=== PATIENT | male | born 1965 | race Caucasian/White ===

== ENCOUNTER 2020-04-14 09:05 | Day surgery (SDC) | payer MEDICARE, MEDICAID ==
[~2020-04-14 09:05] MED LIST: CHONDR SU A NA/HYALUR INTRAOC KIT (SURGICARE) ONE; EPINEPHRINE INJ/PF 1 MG/1 ML AMPULE ONE; KETOROLAC TROMETHAMINE 0.45% 4 DROP/0.4 ML DROPERETTE OS PRN; LIDOCAINE 1%/PHENYLEPHRINE 1.5% 1 ML VIAL ONE
[2020-04-14] MEDS: TROPICAMIDE 1% OPH SOLN 15 ML OS PRN ×3 (10:10→10:29)
[2020-04-14] MEDS: TETRACAINE HCL 0.5% OPH SOLN 4 ML OS PRN ×3 (10:10→10:43)
[2020-04-14] MEDS: BESIFLOXACIN HCL 0.6% OPH SUSP 5 ML BOTTLE OS PRN ×4 (10:11→11:12)
[2020-04-14] MEDS: CYCLOPENTOLATE 0.2%/PHENYLEPHRINE 1% OPH SOLN 2 ML OS PRN ×3 (10:11→10:29)
[2020-04-14] MEDS ORDERED: MIDAZOLAM 2 MG/2 ML INJ ONE (10:16)
[2020-04-14] MEDS ORDERED: CHONDR SU A NA/HYALUR SOD 0.5 ML DISP.SYRIN ONE (11:07)
[2020-04-14] MEDS ORDERED: TOBRAMYCIN SULFATE/DEXAMETH OPH OINTMENT 3.5 GM ONE (11:12)
[2020-04-14] MEDS: DORZOLAMIDE HCL 2%/TIMOLOL MALEAT 0.5% OPH SOLN 10 ML OS PRN ×2 (11:12)
[2020-04-14] MEDS: PREDNISOLONE ACETATE 1% OPH SUSP 5 ML OS PRN ×2 (11:12)
--- NOTE | 2020-04-14 12:11 | Operative Report ---
Operative Report[facility] Operative Report: DATE OF SURGERY: 04/14/2020 PREOPERATIVE DIAGNOSIS: Cataracts, left eye POSTOPERATIVE DIAGNOSIS: Cataract, left eye OPERATION: Cataract extraction with insertion of an IOL of the left eye. Intraocular Lens Model: [21.5 SN 60 WF] Patient underwent surgery for difficulty seeing small print SURGEON: Livan Anthony MD ANESTHESIA: Topical PROCEDURE: After obtaining appropriate consent, the patient's left eye was prepped and draped in a sterile fashion as well as the surgeon in the sterile manner and cataract surgery was started. First a paracentesis blade was used to make a side-port incision. Viscoelastic was used to inflate the anterior chamber. Next a 2.4 mm incision was made with a 2.4 mm blade, clear corneal temporarily. A continuous capsulorrhexis was made using a cystotome and Utrata forceps. Following this hydrodissection was carried out to make the lens fully loose and mobile and it was rotated 90 degrees. Following this, a divide and conquer technique was used to phacoemulsify the lens. The remaining cortex was removed with an irrigation/aspiration. Provisc was instilled into the capsular bag to inflate the bag.The intraocular lens was placed. The remaining viscoelastic material was removed with irrigation/aspiration. Following this, the incision was found to be watertight. Besivance and Cosopt was instilled into the eye and a protective shield was placed over the eye. The patient was returned to the postoperative recovery in a stable condition.
== END 2020-04-14 11:45 ==
LOC: SC 09:05
PROVIDERS: ATTEND Internal Medicine
DX: H25.812 Combined forms of age-related cataract, left eye (principal); H25.89 Other age-related cataract; E11.3313 Type 2 diabetes mellitus with moderate nonproliferative diabetic retinopathy with macular edema, bilateral; E11.36 Type 2 diabetes mellitus with diabetic cataract; Z79.4 Long term (current) use of insulin; I10 Essential (primary) hypertension; E78.00 Pure hypercholesterolemia, unspecified; Z95.1 Presence of aortocoronary bypass graft; I25.10 Atherosclerotic heart disease of native coronary artery without angina pectoris; I48.91 Unspecified atrial fibrillation; Z99.2 Dependence on renal dialysis; D64.9 Anemia, unspecified; G47.33 Obstructive sleep apnea (adult) (pediatric); I25.2 Old myocardial infarction
CPT/HCPCS: 66984; 82962; V2632; J2250; J3490 ×3; A9270 ×2; J0171; 142

== ENCOUNTER 2020-04-26 15:16 | Emergency (ER) | payer MEDICARE, MEDICAID ==
--- NOTE | 2020-04-26 15:34 | ER Document Report ---
ED Medical Screen (RME) - General Chief Complaint: High Blood Sugar Stated Complaint: LEG WEAKNESS Time Seen by Provider: 04/26/20 15:23 Primary Care Provider: AZAR SANTIAGO MD [Primary Care Provider] - Follow up as needed Mode of Arrival: Medic Information source: Patient Notes: 55-year-old male presents to ED ED via EMS with C/O bilateral leg weakness. The states that his sugar was 40 this morning so he ate a xiao biscuit took 2 sugar pills and drinking apple juice. He states he did not take his insulin this morning because her sugar was low. He then went to go to a scheduled doctors appointment where his legs felt weak and gave out on him. He states the got back in the car and went to get food for blood sugar being low and the same thing happened with his legs. EMS was called and was brought to ED. EMS reports a BGL of 505. Patient is alert oriented respirations regular nonlabored speaking in full sentences. A+Ox4. respirations even and unlabored. Patient has a history ED failure dialysis DM, HTN, takes blood thinners. States he does ache all over. I have greeted and performed a rapid initial assessment of this patient. A comp rehensive ED assessment and evaluation of the patient, analysis of test results and completion of medical decision making process will be conducted by an additional ED providers. - Related Data Allergies/Adverse Reactions: pregabalin [From Lyrica] Allergy (Verified 04/26/20 15:29) Hives Past Medical History - Past Medical History Cardiac Medical History: Reports: Hx Heart Attack, Hx Hypertension Pulmonary Medical History: Denies: Hx Asthma Neurological Medical History: Denies: Hx Cerebrovascular Accident, Hx Seizures GI Medical History: Denies: Hx Hepatitis, Hx Hiatal Hernia, Hx Ulcer Infectious Medical History: Denies: Hx Hepatitis Past Surgical History: Reports: Hx Open Heart Surgery. Denies: Hx Pacemaker Physical Exam - Vital signs Vitals: Temp Pulse Resp BP Pulse Ox 98.5 F 105 H 16 157/89 H 98 04/26/20 15:22 04/26/20 15:22 04/26/20 15:22 04/26/20 15:22 04/26/20 15:22 Course - Vital Signs Vital signs: Temp Pulse Resp BP Pulse Ox 98.5 F 105 H 16 157/89 H 98 04/26/20 15:22 04/26/20 15:22 04/26/20 15:22 04/26/20 15:22 04/26/20 15:22 Doctor's Discharge - Discharge Referrals: AZAR SANTIAGO MD [Primary Care Provider] - Follow up as needed
[2020-04-26 15:59] LABS: VENOUS BLOOD BASE EXCESS 1.2 mmol/L; VENOUS BLOOD PCO2 53.8 mmHg (35-63); VENOUS BLOOD PH 7.34 (7.30-7.42)
[2020-04-26 16:06] LABS: ABSOLUTE BASOPHILS # (AUTO) 0.1 10^3/uL (0.0-0.2); ABSOLUTE LYMPHOCYTES (AUTO) 0.5 10^3/uL (0.5-4.7); ABSOLUTE MONOCYTES (AUTO) 0.6 10^3/uL (0.1-1.4); ABSOLUTE NEUT (AUTO) 5.3 10^3/uL (1.7-8.2); BASOPHILS % (AUTO) 0.9 % (0-2); EOSINOPHILS % (AUTO) 0.5 % (0-6); HEMATOCRIT 38.4 % (37.9-51.0); HEMOGLOBIN 12.6 g/dL (13.5-17.0); LYMPHOCYTES % (AUTO) 8.1 % (13-45); MEAN CORPUSCULAR HEMOGLOBIN 31.9 pg (27.0-33.4); MEAN CORPUSCULAR HGB CONC 32.8 g/dL (32.0-36.0); MEAN CORPUSCULAR VOLUME 97 fl (80-97); MONOCYTES % (AUTO) 9.7 % (3-13); PLATELET COUNT 284 10^3/uL (150-450); RED BLOOD COUNT 3.95 10^6/uL (4.35-5.55); RED CELL DISTRIBUTION WIDTH 15.5 % (11.5-14.0); SEGMENTED NEUTROPHILS % (AUTO) 80.8 % (42-78); TOTAL CELLS COUNTED % (AUTO) 100 %; WHITE BLOOD COUNT 6.5 10^3/uL (4.0-10.5)
[2020-04-26 16:14] LABS: ALBUMIN 4.3 g/dL (3.5-5.0); ALKALINE PHOSPHATASE 225 U/L (38-126); ANION GAP 15 (5-19); ASPARTATE AMINO TRANSFERASE 52 U/L (17-59); BILIRUBIN,DIRECT 0.4 mg/dL (0.0-0.4); BILIRUBIN,TOTAL 1.1 mg/dL (0.2-1.3); BLOOD UREA NITROGEN 63 mg/dL (7-20); CALCIUM 8.3 mg/dL (8.4-10.2); CARBON DIOXIDE 28 mmol/L (22-30); CHLORIDE 87 mmol/L (98-107); TOTAL PROTEIN 6.7 g/dL (6.3-8.2)
[2020-04-26 16:35] LABS: GLUCOSE 508 mg/dL (75-110)
--- NOTE | 2020-04-26 17:07 | ER Document Report ---
ED General - General Chief Complaint: Leg Pain Stated Complaint: LEG WEAKNESS Time Seen by Provider: 04/26/20 15:23 Primary Care Provider: AZAR SANTIAGO MD [RONNIE ISSA] - Follow up as needed Mode of Arrival: Medic - HPI Notes: 55-year-old male presents with bilateral leg weakness. Patient states that this morning while going to get something to eat, when he went to get out of the car and stepped up on the curb his legs felt "like noodles" and gave out, causing him to fall to the ground, states he did not hit his head. He states he was able to get up and walk without issue. Another episode similar to this happened again with the leg noodle sensation. States that he has since gotten up and walked, has been able to stand, currently denying complaints. Patient is a MWF dialysis patient, states he had a full session yesterday. He also states that this morning he had some hypoglycemia, he went and ate a large breakfast and sugar increased to the 500s, he has not taken any insulin today and has not had anything to eat since. No chest pain or shortness of breath. Had a cardioversion for A. fib a few weeks ago. Reports compliance with his medications. - Related Data Allergies/Adverse Reactions: pregabalin [From Lyrica] Allergy (Verified 04/26/20 15:29) Hives Past Medical History - General Information source: Patient - Social History Smoking Status: Former Smoker Family History: Reviewed & Not Pertinent Patient has homicidal ideation: No - Past Medical History Cardiac Medical History: Reports: Hx Heart Attack, Hx Hypertension Pulmonary Medical History: Denies: Hx Asthma Neurological Medical History: Denies: Hx Cerebrovascular Accident, Hx Seizures GI Medical History: Denies: Hx Hepatitis, Hx Hiatal Hernia, Hx Ulcer Infectious Medical History: Denies: Hx Hepatitis Past Surgical History: Reports: Hx Open Heart Surgery. Denies: Hx Pacemaker Review of Systems - Review of Systems Constitutional: No symptoms reported EENT: No symptoms reported Cardiovascular: denies: Chest pain Respiratory: denies: Short of breath Gastrointestinal: denies: Abdominal pain Genitourinary: Other - Still makes urine Male Genitourinary: No symptoms reported Musculoskeletal: denies: Muscle pain Skin: No symptoms reported Hematologic/Lymphatic: No symptoms reported Neurological/Psychological: denies: Numbness, Tingling Physical Exam - Vital signs Vitals: Temp Pulse Resp BP Pulse Ox 98.5 F 105 H 16 157/89 H 98 04/26/20 15:22 04/26/20 15:22 04/26/20 15:22 04/26/20 15:22 04/26/20 15:22 - General General appearance: Appears well, Alert In distress: None - HEENT Head: Normocephalic, Atraumatic Extraocular movements intact: Yes Pupils: PERRL - Respiratory Breath sounds: Normal. No: Rales - Cardiovascular Rhythm: Regular Heart sounds: Normal auscultation Normal capillary refill: Yes - Abdominal Tenderness: Nontender - Extremities General upper extremity: Normal ROM General lower extremity: Normal ROM. No: Edema - Neurological Neuro grossly intact: Yes Cognition: Normal Orientation: AAOx4 Notes: Strength 5/5 lower extremities, sensation intact, coordination intact - Psychological Associated symptoms: Normal affect - Skin Skin Temperature: Warm Course - Re-evaluation Re-evalutation: 55-year-old male presents with 2 episodes of leg weakness described as his legs giving out. On exam he is well-appearing, neurologically intact, has intact motor and sensation to his lower extremities. He currently without complaints. Additionally had hypo then hyperglycemia today. The triage process patient had labs done which is notable for a potassium of 8.0, no EKG changes, MWF dialysis and had session yesterday. We will start shifting with calcium gluconate, insulin, bicarb and Lasix. Hold on D50 as he is hyperglycemic with pseudoh yponatremia. VBG without acidosis. 04/26/20 18:59 Initial shift medications have been ordered, patient's repeat glucose essentially on change, will give this some more insulin for hyperglycemia/hype rkalemia then intend to recheck labs 04/26/20 20:42 Patient has had reduction of potassium of 2 points, now 5.9, he is due for dialysis tomorrow, feel this is acceptable value 04/26/20 20:47 Updated patient on results. He would like to go home and eager to go home immediately. He confirms that he will be going to dialysis tomorrow. Discussed with him to discuss the hyperkalemia, he states that he takes 3 doses of binders per day. Strict return precautions given, stable at time of discharge. - Vital Signs Vital signs: Temp Pulse Resp BP Pulse Ox 97.6 F 105 H 14 128/77 H 98 04/26/20 20:00 04/26/20 15:22 04/26/20 19:01 04/26/20 19:01 04/26/20 19:01 - Laboratory Result Diagrams: 04/26/20 15:43 04/26/20 20:05 Laboratory results interpreted by me: 04/26/20 04/26/20 04/26/20 15:38 15:43 15:43 RBC 3.95 L Hgb 12.6 L RDW 15.5 H Lymph % (Auto) 8.1 L Seg Neutrophils % 80.8 H Sodium 129.5 L Potassium 8.0 H* Chloride 87 L BUN 63 H Creatinine 6.76 H Est GFR ( Amer) 10 L Est GFR (MDRD) Non-Af 9 L Glucose 508 H* POC Glucose 440 H* Calcium 8.3 L ALT 75 H Alkaline Phosphatase 225 H 04/26/20 04/26/20 04/26/20 17:21 18:43 20:05 RBC Hgb RDW Lymph % (Auto) Seg Neutrophils % Sodium 132.9 L Potassium 5.9 H D Chloride 91 L BUN 66 H Creatinine 7.18 H Est GFR ( Amer) 10 L Est GFR (MDRD) Non-Af 8 L Glucose 320 H POC Glucose 474 H* 435 H* Calcium ALT Alkaline Phosphatase 04/26/20 20:05 RBC Hgb RDW Lymph % (Auto) Seg Neutrophils % Sodium Potassium Chloride BUN Creatinine Est GFR ( Amer) Est GFR (MDRD) Non-Af Glucose POC Glucose 307 H Calcium ALT Alkaline Phosphatase - EKG Interpretation by Me Additional EKG results interpreted by me: EKG is interpreted by me sinus rhythm, rate 98. Widened QRS, IVCD. Slightly prolonged QTC. Nonspecific ST changes. No peaked T waves. Discharge - Discharge Clinical Impression: Hyperkalemia, ESRD (end stage renal disease) on dialysis, Hyperglycemia due to diabetes mellitus Disposition: HOME, SELF-CARE Additional Instructions: Please be sure to go to dialysis tomorrow, discussed with him potentially changing her potassium bath. Return to the emergency department for any concerning worsening symptoms. Continue all medications as prescribed. Referrals: AZAR SANTIAGO MD [RONNIE ISSA] - Follow up as needed
[2020-04-26] MEDS ORDERED: CALCIUM GLUCONATE 1000 MG/10 ML INJ IV ONE (17:08)
[2020-04-26] MEDS ORDERED: INSULIN REG, HUMAN 100 UNIT/ML 3 ML VIAL (PYX) IV ONE ×2 (17:22→18:58)
[2020-04-26] MEDS ORDERED: FUROSEMIDE INJ/PF 20 MG/2 ML SDV IV ONE (17:22)
[2020-04-26] MEDS ORDERED: SODIUM BICARBONATE 8.4% INJ 50 MEQ/50 ML DISP.SYRIN IV ONE (17:23)
[2020-04-26] MEDS ORDERED: INSULIN REG, HUMAN 100 UNIT/ML 3 ML VIAL (PYX) ONE (17:59)
--- NOTE | 2020-04-26 18:16 | EKG REPORT ---
SEVERITY:- ABNORMAL ECG - SINUS OR ECTOPIC ATRIAL RHYTHM IVCD, CONSIDER ATYPICAL LBBB NONSPECIFIC LATERAL ST CHANGES : Confirmed by: Merritt Salazar MD 26-Apr-2020 18:16:10
[2020-04-26 20:33] LABS: ANION GAP 13 (5-19); BLOOD UREA NITROGEN 66 mg/dL (7-20); CALCIUM 8.6 mg/dL (8.4-10.2); CARBON DIOXIDE 29 mmol/L (22-30); CHLORIDE 91 mmol/L (98-107); GLUCOSE 320 mg/dL (75-110)
[2020-04-26 20:40] LABS: POTASSIUM 5.9 mmol/L (3.6-5.0)
[2020-04-26 20:54] VITALS: BP 145/95
== END 2020-04-26 21:00 | disposition home or self-care (01) ==
LOC: ER 15:16
DX: E87.6 Hypokalemia (principal); I12.0 Hypertensive chronic kidney disease with stage 5 chronic kidney disease or end stage renal disease; E11.22 Type 2 diabetes mellitus with diabetic chronic kidney disease; E11.65 Type 2 diabetes mellitus with hyperglycemia; N18.6 End stage renal disease; Z99.2 Dependence on renal dialysis; R53.1 Weakness; I25.2 Old myocardial infarction; Z98.890 Other specified postprocedural states; Z87.891 Personal history of nicotine dependence; Z79.899 Other long term (current) drug therapy; Z88.6 Allergy status to analgesic agent
CPT/HCPCS: 93005; 99284; 96374; 96375; 36415; 82553; 82962; 85025; 80053; 82803; 93010; J0610; J1940; A9270; J3490; J1815

== ENCOUNTER 2020-05-05 10:43 | Day surgery (SDC) | payer MEDICARE, MEDICAID ==
[~2020-05-05 10:43] MED LIST changes: +FENTANYL CITRATE INJ/PF 100 MCG/2 ML AMPUL ONE; +KETOROLAC TROMETHAMINE 0.45% 4 DROP/0.4 ML DROPERETTE OD PRN; -KETOROLAC TROMETHAMINE 0.45% 4 DROP/0.4 ML DROPERETTE OS PRN; +MIDAZOLAM 2 MG/2 ML INJ ONE; +PREDNISOLONE ACETATE 1% OPH SUSP 5 ML OD PRN; +TRYPAN BLUE 0.06 % OPH SOLN 0.5 ML DISP.SYRIN ONE
[2020-05-05] MEDS: CYCLOPENTOLATE 0.2%/PHENYLEPHRINE 1% OPH SOLN 2 ML OD PRN ×3 (11:15→11:35)
[2020-05-05] MEDS: TROPICAMIDE 1% OPH SOLN 15 ML OD PRN ×3 (11:15→11:35)
[2020-05-05] MEDS: BESIFLOXACIN HCL 0.6% OPH SUSP 5 ML BOTTLE OD PRN ×4 (11:15→12:32)
[2020-05-05] MEDS: TETRACAINE HCL 0.5% OPH SOLN 4 ML OD PRN ×3 (11:16→11:53)
[2020-05-05] MEDS ORDERED: METOPROLOL TARTRATE PF/INJ 5 MG/5 ML SDV IV ONE (11:49)
[2020-05-05] MEDS ORDERED: POVIDONE-IODINE 5% OPH PREP SOLN 30 ML ONE (12:00)
[2020-05-05] MEDS ORDERED: CHONDR SU A NA/HYALUR SOD 0.5 ML DISP.SYRIN ONE ×2 (12:17→12:22)
[2020-05-05] MEDS: DORZOLAMIDE HCL 2%/TIMOLOL MALEAT 0.5% OPH SOLN 10 ML OD PRN ×2 (12:32)
[2020-05-05] MEDS: PREDNISOLONE ACETATE 1% OPH SUSP 5 ML OD PRN ×2 (12:32)
[2020-05-05] MEDS ORDERED: DORZOLAMIDE HCL 2%/TIMOLOL MALEAT 0.5% OPH SOLN 10 ML ONE (12:37)
[2020-05-05] MEDS ORDERED: ACETYLCHOLINE CHLORIDE 20 MG/2 ML KIT ONE (12:38)
--- NOTE | 2020-05-06 06:52 | Operative Report ---
Operative Report-[facility] Operative Report: DATE OF SURGERY: 05/06/2020 PREOPERATIVE DIAGNOSIS: Mature cataract, right eye POSTOPERATIVE DIAGNOSIS: Mature cataract, right eye OPERATION: Complex cataract extraction with insertion of an IOL of the right eye with use of trypan blue dye. Intraocular Lens Model: [20.0 diopter SN 60 WF] Patient underwent surgery for difficulty seeing to drive and reading SURGEON: Livan Anthony MD ANESTHESIA: Topical PROCEDURE: After obtaining appropriate consent, the patient's right eye was prepped and draped in a sterile fashion as well as the surgeon in the sterile manner and cataract surgery was started. First a paracentesis blade was used to make a side-port incision. Viscoelastic was used to inflate the anterior chamber. Next a 2.4 mm incision was made with a 2.4 mm blade, clear corneal temporarily. Due to poor red reflex trypan blue dye was used to stain the anterior capsule. A continuous capsulorrhexis was attempted using a cystotome and Utrata forceps. As soon as the cystotome pierced the anterior capsule the anterior capsule spontaneously started to split due to a large nucleus. I rescue the rhexis to complete a semicircular continuous capsulorrhexis. following this hydrodissection was carried out to make the lary fully loose and mobile and it was rotated. Following this, a divide and conquer technique was used to phacoemulsify the lary. The remaining cortex was removed with an irrigation/aspiration. Provisc was instilled into the capsular bag to inflate the bag. The bag was closely inspected and none of the anterior extensions of the capsule had extended passed the zonules and the posterior capsule was intact .the intraocular lens was placed in the bag. The remaining viscoelastic material was removed with irrigation/aspiration. Following this, the incision was found to be watertight. Besivance and Cosopt was instilled into the eye and a protective shield was placed over the eye. The patient was reurned to the postoperative recovery in a stable condition.
== END 2020-05-05 13:05 | disposition home or self-care (01) ==
LOC: SC 10:43
PROVIDERS: ATTEND Internal Medicine
DX: H25.89 Other age-related cataract (principal); Z96.1 Presence of intraocular lens; E11.36 Type 2 diabetes mellitus with diabetic cataract; I10 Essential (primary) hypertension; E78.00 Pure hypercholesterolemia, unspecified; Z79.4 Long term (current) use of insulin
CPT/HCPCS: 66982; 82962; V2632; J3490 ×7; J2250; A9270 ×2; J0171; J3010